=== PATIENT | male | born 1940 | race Two or more races ===

== ENCOUNTER 2024-11-08 13:54 | Emergency (ER) | payer OTHER ==
[~2024-11-08] VITALS: Ht 167.6 cm; Wt 60.3 kg
[2024-11-08 17:23] LABS: HEMATOCRIT 45.2 % (39.0-48.0); HEMOGLOBIN 15.3 g/dL (13-16.00); MEAN CELL VOLUME 90.8 fL (80.0-100.00); MEAN CORPUSCULAR HEMOGLOBIN 30.7 pg (27.00-32.0); MEAN CORPUSCULAR HGB CONC 33.8 g/dl (32.0-36.0); PLATELET COUNT 193 K/uL (150-450); RED BLOOD COUNT 4.98 M/uL (4.00-6.00); RED CELL DISTRIBUTION WIDTH 14.8 % (11.5-14.5)
[2024-11-08 17:38] LABS: PH,URINE 7.5 (5.0-8.0); URINE APPEARANCE Clear; URINE BILIRRUBIN Negative (NEGATIVE); URINE BLOOD Negative; URINE COLOR Yellow; URINE GLUCOSE Negative (NEGATIVE); URINE KETONE Negative (NEGATIVE); URINE LEUKOCYTE Negative; URINE NITRATE Negative; URINE PROTEIN Negative (NEGATIVE); URINE UROBILINOGEN 0.2 E.U./dl
[2024-11-08 17:43] LABS: URINE BACTERIA 4.8 uL (0.0-1933); URINE RBC 4.8 uL (0.0-20.8)
[2024-11-08 17:47] LABS: URINE EPITHELIAL CELLS 0.4 uL (0.0-38.8); URINE WBC 0.9 uL (0.0-23.2)
[2024-11-08 17:52] LABS: CREATININE SERUM 1.05 mg/dL (0.70-1.30); GFR 67.62; POTASSIUM 4.51 mEq/L (3.5-5.1)
== END 2024-11-08 19:31 | disposition home or self-care (01) ==
LOC: ER 13:54
PROVIDERS: General Practice
DX: B34.9 Viral infection, unspecified (principal)